=== PATIENT | female | born 1990 | race Caucasian/White ===

== ENCOUNTER 2023-10-10 23:51 | Emergency (ER) | payer OTHER, BC ==
[~2023-10-10] VITALS: Ht 167.6 cm; Wt 86.2 kg
[2023-10-11] VITALS: BP_SYST 114; PULSE 106; RESP 16; TEMP 98.2; O2SAT 100
[2023-10-11] MEDS: LORazepam 2 MG/ML VIAL IM ONE (00:31)
[2023-10-11 01:11] VITALS: BP_SYST 118; PULSE 91; RESP 20; TEMP 97.7; O2SAT 97
== END 2023-10-11 01:11 | disposition home or self-care (01) ==
LOC: SED 23:51
DX: F41.9 Anxiety disorder, unspecified (principal); Z88.5 Allergy status to narcotic agent; Z79.899 Other long term (current) drug therapy
CPT/HCPCS: 99283; 96372; J2060